=== PATIENT | female | born 2000 | race Two or more races ===

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

== ENCOUNTER 2019-05-02 18:07 | Emergency (ER) | payer MEDICAID ==
[~2019-05-02] VITALS: Ht 160 cm; Wt 72.6 kg
[2019-05-02 18:42] LABS: Urine WBC None Seen /hpf (0 - 5)
[2019-05-02] MEDS ORDERED: IOHEXOL 350 MG/ML 100ML IJ ONE (18:52)
[2019-05-02] MEDS ORDERED: SODIUM CHLORIDE 0.9% 1,000 ML IV ONE (19:00)
[2019-05-02 19:02] LABS: Basophils # (auto) 0 uL; Basophils % (auto) 0.1 % (0.0-2.0); Eosinophils # (auto) 0 uL; Eosinophils % (auto) 0.1 % (0.0-7.0); Hematocrit 44.3 % (36.0-46.0); Hemoglobin 14.7 g/dL (12.2-16.2); Lymphocytes # (auto) 0.6 uL; Lymphocytes % (auto) 6.5 % (10.0-50.0); Mean Corpuscular Hemoglobin 30.1 pg (28.0-32.0); Mean Corpuscular Hgb Conc. 33.1 g/dL (32.0-36.0); Monocytes # (auto) 0 uL; Monocytes % (auto) 0.5 % (0.0-12.0); Neutrophils # (auto) 8.4 uL; Neutrophils % (auto) 92.8 % (37.0-80.0); Platelet Count (auto) 305 10^3/uL (140-450); Red Blood Cells 4.87 10^6/uL (4.0-5.20); Red Cell Distribution Width 14.5 % (11.8-14.3)
[2019-05-02 19:13] LABS: Urine Bacteria NONE SEEN /hpf (None Seen); Urine Blood Negative /uL (Negative); Urine Specific Gravity 1.011 (1.001-1.035)
[2019-05-02 19:33] LABS: Alanine Aminotransferase 32 U/L (13-56); Albumin 4.2 g/dL (3.4-5.0); Anion Gap 15 (5-15); Aspartate Aminotransferase 28 U/L (15-37); BUN/Creatinine Ratio 3.5; Blood Urea Nitrogen 4 mg/dL (7-18); Calcium 9.4 mg/dL (8.5-10.1); Carbon Dioxide 15 mmol/L (21-32); Chloride 108 mmol/L (98-107); GFR African American 79 mL/min; GFR Non-African American 65 mL/min; Glucose 273 mg/dL (74-106); Potassium 3.7 mmol/L (3.5-5.1); Sodium 138 mmol/L (136-145)
[2019-05-02 19:37] LABS: Alkaline Phosphatase 89 U/L (45-117); Bilirubin, Total 0.3 mg/dL (0.2-1.0); Total Protein 8.2 g/dL (6.4-8.2)
[2019-05-02 23:59] VITALS: BP 147/96
== END 2019-05-02 23:31 | disposition home or self-care (01) ==
LOC: ER 18:07
DX: R00.2 Palpitations (principal); J45.909 Unspecified asthma, uncomplicated; Z79.899 Other long term (current) drug therapy
CPT/HCPCS: 36415; 71046; 71275; 80053; 81001; 81025; 84484; 85025; 93005; 94761; 99284; Q9967

== ENCOUNTER 2022-02-05 13:20 | Emergency (ER) | payer MEDICAID ==
[~2022-02-05] VITALS: Ht 160 cm; Wt 58.1 kg
[2022-02-05 13:31] VITALS: BP 111/75
[2022-02-05 15:17] LABS: Basophils # (auto) 0 10 ^3/uL (0-0.2); Basophils % (auto) 0.2 % (0.0-2.0); Eosinophils # (auto) 0.1 10 ^3/uL (0-0.8); Eosinophils % (auto) 0.4 % (0.0-7.0); Hematocrit 36.8 % (36.0-46.0); Hemoglobin 12.5 g/dL (12.2-16.2); Lymphocytes # (auto) 1.8 10 ^3/uL (0.4-5.4); Lymphocytes % (auto) 13.7 % (10.0-50.0); Mean Corpuscular Hemoglobin 31.9 pg (28.0-32.0); Mean Corpuscular Volume 93.8 fL (80.0-100.0); Monocytes # (auto) 0.4 10 ^3/uL (0-1.3); Neutrophils # (auto) 10.9 10 ^3/uL (1.6-8.6); Neutrophils % (auto) 82.7 % (37.0-80.0); Red Blood Cells 3.92 10^6/uL (4.0-5.20); Red Cell Distribution Width 13.9 % (11.8-14.3); White Blood Cell 13.2 10^3/uL (4.4-10.8)
[2022-02-05 15:35] LABS: Potassium 3.5 mmol/L (3.5-5.1)
[2022-02-05 15:39] LABS: Albumin 3.3 g/dL (3.4-5.0); BUN/Creatinine Ratio 10.4; Calcium 9.1 mg/dL (8.5-10.1)
[2022-02-05 15:42] LABS: Bilirubin, Total 0.5 mg/dL (0.2-1.0); Total Protein 7.1 g/dL (6.4-8.2)
[2022-02-05] MEDS ORDERED: NITR-87 PO (18:56)
== END 2022-02-05 21:00 | disposition left against medical advice (07) ==
LOC: ER 13:20
DX: O23.42 Unspecified infection of urinary tract in pregnancy, second trimester (principal); N39.0 Urinary tract infection, site not specified; O99.512 Diseases of the respiratory system complicating pregnancy, second trimester; J45.909 Unspecified asthma, uncomplicated; Z79.899 Other long term (current) drug therapy; Z3A.16 16 weeks gestation of pregnancy
CPT/HCPCS: 36415; 76805; 80053; 83690; 84702; 85025